=== PATIENT | male | born 1950 | race Caucasian/White ===

== ENCOUNTER → 2017-09-12 | Outpatient (CLI) | payer MEDICARE, OTHER ==
[~2017-09-12] MED LIST: ALLEGRA 60MG TA60 MG PO; ALLEGRA60 M1 PO; CARDURA 8MG TAB8 MG PO; COLACE 100100 MG/CAP PO; DOXAZOSIN4 MG PO; METAMUCIL1.7 G1 PO; MUCINEX DM 60 M1 TER PO; NAPROSYN500 MG PO; NORCO 325 MG-51 TAB PO; PRILOSEC 20MG20 MG PO; ZANTAC 150150 MG PO; ZANTAC 150MG T150 MG PO
== END ==
LOC: COL.RAD 09-06 10:30
DX: Z13.6 Encounter for screening for cardiovascular disorders (principal)

== ENCOUNTER 2023-10-31 09:07 | Day surgery (SDC) | payer MEDICARE, OTHER ==
[~2023-10-31] VITALS: Ht 177.8 cm; Wt 80.0 kg
[~2023-10-31 09:07] MED LIST changes: +LR 1,000 ML IV SCH; +Ondansetron 4 MG/2 ML VIAL IV PRN
[2023-10-31] MEDS ORDERED: CELEBREX 1100 MG/CAP PO (09:38)
[2023-10-31] MEDS ORDERED: DDAVP TAB0.2 MG PO (09:40)
[2023-10-31] MEDS ORDERED: LIPITOR20 MG PO (09:41)
[2023-10-31] MEDS ORDERED: CIALIS5 MG PO (09:41)
[2023-10-31] MEDS ORDERED: Lidocaine PF 2% (20 MG/ML) 5 ML VIAL ONE (10:21)
[2023-10-31] MEDS ORDERED: fentaNYL 50 MCG/ML 2 ML VIAL ONE (10:21)
[2023-10-31 10:50] VITALS: BP 97/56; PULSE 31
[2023-10-31 11:00] VITALS: BP 108/64; PULSE 63
[2023-10-31 11:05] VITALS: BP 109/66; PULSE 64
[2023-10-31 11:15] VITALS: BP 125/73; PULSE 74
[2023-10-31 11:30] VITALS: BP 139/73; PULSE 67
[2023-10-31 13:20] VITALS: BP 130/82; PULSE 87; TEMP 97.9
--- NOTE | 2023-10-31 13:22 | NUR ---
0933 Patient ambulatory to bay 5 with steady gait, breathing even and unlabored. Pt is alert and oriented. Consents reviewed and signed by the patient. IV established. LR infusion via gravity at KVO. Call light in reach. Warm blanket provided.
--- NOTE | 2023-10-31 14:10 | NUR ---
1050 PATIENT RETURNS TO [facility] VIA CART. PT AWAKE AND ALERT. RESPIRATIONS UNLABORED. AMBULATED TO RECLINER CHAIR WITH 2:1 SBA. PT DENIES NAUSEA OR ABDOMINAL PAIN. HOOKED UP TO MONITOR AND VS OBTAINED. BP 97/56, HR 31. CALL LIGHT AT SIDE. 1052 BP 67/46, HR 31. PT C/O NAUSEA, LIGHTHEADEDNESS, AND DIAPHORESIS. HANDOFF RN MARTY NOTIFIED, GALILEO MORFIN RUSHED TO ROOM AND ASSESSED PATIENT. CRASH CART BROUGHT TO BEDSIDE, PADS ATTACHED TO PATIENT. ECG MONITOR HOOKED UP. PT HYPOTENSIVE, JUNCITONAL RHYTHM. GALILEO MORFIN ADMINISTERED IV ROBINUL AND IV EPHEDRINE TO STABILIZE PATIENT. PT STABLIZED AT 1100, BP 108/64, HR 63 AND SPO2 98% ON ROOM AIR. PATIENT STATED HE FELT MUCH BETTER. 500 ML FLUID BOLUS ADMINISTERED. DFIB PADS REMOVED, CRASH CART RETURNED. 1115 PATIENT TOLERATING WATER AND CHOCOLATE ICE CREAM WITHOUT NAUSEA OR DIFFICULTY SWALLOWING (EGD ONLY). 1120 IN ROOM SPEAKING WITH PATIENT. 1130 D/C INSTRUCTIONS REVIEWED WITH PATIENT. PT VERBALIZED UNDERSTANDING AND A COPY OF INSTRUCTIONS PROVIDED IN D/C FOLDER. 1145 PATIENT DRESSES SELF. RN CONTINUED TO MONITOR PATIENT FOR ANY INSTABILITY PRIOR TO DC. 1230 PATIENT DISCHARGED FROM UNIT VIA W/C TO A PERSONAL VEHICLE. PT LEFT HOSPITAL IN STABLE CONDITION.
== END 2023-10-31 12:30 | disposition home or self-care (01) ==
LOC: SDCO 09:07
DX: Z12.11 Encounter for screening for malignant neoplasm of colon (principal); K64.0 First degree hemorrhoids; K57.30 Diverticulosis of large intestine without perforation or abscess without bleeding; Z87.891 Personal history of nicotine dependence; Z86.010 Personal history of colon polyps
CPT/HCPCS: J2704; J3010; J7120

== ENCOUNTER → 2024-01-06 | Outpatient (CLI) | payer MEDICARE, OTHER ==
[~2024-01-06] MED LIST changes: +CELEBREX 1100 MG/CAP PO; +CIALIS5 MG PO; +DDAVP TAB0.2 MG PO; +LIPITOR20 MG PO; -LR 1,000 ML IV SCH; -Ondansetron 4 MG/2 ML VIAL IV PRN
== END ==
LOC: COL.RAD 08:55
DX: K80.20 Calculus of gallbladder without cholecystitis without obstruction (principal); K76.89 Other specified diseases of liver